=== PATIENT | female | born 2000 | race Caucasian/White ===

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

== ENCOUNTER 2022-05-08 09:30 | Inpatient (IN) | payer MEDICAID ==
[~2022-05-08 09:30] MED LIST: Lidocaine 1% 10 ML MDV ONE
[2022-05-08] MEDS ORDERED: Nalbuphine HCl 10 MG/ 1ML Amp IVPUSH PRN (10:07)
[2022-05-08] MEDS ORDERED: Sodium Chloride 0.9% 10 ML Syringe FLUSH PRN (10:07)
[2022-05-08] MEDS ORDERED: Ondansetron 4 MG/2 ML SDV IVPUSH PRN (10:07)
[2022-05-08] MEDS ORDERED: Oxytocin/Lactated Ringers 10 UNIT/1,000 ML BAG IV SCH ×2 (10:15)
[2022-05-08] MEDS: Lactated Ringers 1,000 ML IV SCH ×2 (10:38→12:50)
[2022-05-08] MEDS ORDERED: Bupivacaine/fentaNYL/NS 100 ML Bag EPIDUR PRN (12:30)
[2022-05-08] MEDS ORDERED: diphenhydrAMINE 50 MG/ML SDV IVPUSH PRN (12:30)
[2022-05-08] MEDS ORDERED: ePHEDrine 50 MG/ML SDV IVPUSH PRN (12:30)
[2022-05-08] MEDS ORDERED: fentaNYL 100 MCG/2 ML SDV EPIDUR PRN (12:30)
[2022-05-08] MEDS: Ibuprofen 600 MG Tab PO PRN (19:38)
[2022-05-08] MEDS: Witch Hazel Medicated Pads 40/Jar TOP PRN (19:39)
[2022-05-08] MEDS: Benzocaine/Menthol 20%-0.5% Spray 78 GM Cannister TOP PRN (19:39)
[2022-05-08] MEDS ORDERED: Sodium Chloride 0.9% 10 ML Syringe FLUSH SCH (21:00)
[2022-05-09] MEDS: Acetaminophen 325 MG Tab PO PRN ×2 (01:29→16:53)
[2022-05-09] MEDS: Docusate Sodium 100 MG Cap PO PRN (10:06)
[2022-05-09] MEDS: Ibuprofen 600 MG Tab PO PRN ×2 (13:49→21:18)
[2022-05-10] MEDS: Ibuprofen 600 MG Tab PO PRN (05:00)
[2022-05-10] MEDS: Acetaminophen 325 MG Tab PO PRN ×2 (05:01→10:17)
[2022-05-10] MEDS: Docusate Sodium 100 MG Cap PO PRN (05:02)
[2022-05-10] MEDS: Witch Hazel Medicated Pads 40/Jar TOP PRN (10:17)
[2022-05-10] MEDS: Benzocaine/Menthol 20%-0.5% Spray 78 GM Cannister TOP PRN (10:17)
== END 2022-05-10 11:30 | disposition home or self-care (01) | DRG 807 ==
LOC: JD.OBCHECK 09:30 → JD.OB 09:36 → JD.OBCHECK 10:09 → OBSVTOIN 18:07 → JD.OB 18:39
PROVIDERS: ADMIT Obstetrics & Gynecology; ATTEND Obstetrics & Gynecology
PROC: 10E0XZZ Delivery of Products of Conception, External Approach (ICD-10-PCS; principal; 2022-05-08)
PROC: 0KQM0ZZ Repair Perineum Muscle, Open Approach (ICD-10-PCS; 2022-05-08)
PROC: 10907ZC Drainage of Amniotic Fluid, Therapeutic from Products of Conception, Via Natural or Artificial Opening (ICD-10-PCS; 2022-05-08)
PROC: 3E0R3BZ Introduction of Anesthetic Agent into Spinal Canal, Percutaneous Approach (ICD-10-PCS; 2022-05-08)
PROC: 00HU33Z Insertion of Infusion Device into Spinal Canal, Percutaneous Approach (ICD-10-PCS; 2022-05-08)
DX: O69.81X0 Labor and delivery complicated by cord around neck, without compression, not applicable or unspecified (principal); Z37.0 Single live birth; O70.1 Second degree perineal laceration during delivery; Z3A.40 40 weeks gestation of pregnancy
CPT/HCPCS: 36415; 51702; 59025; 59409; 84112; 85025; 86592; 86850; 86900; 86901; A9270-GY; J2590; J3010; J7120